=== PATIENT | female | born 1970 | race Caucasian/White ===

== ENCOUNTER → 2016-07-19 | Outpatient (CLI) | payer OTHER ==
--- NOTE | 2016-07-19 13:18 | DIREP ---
PROCEDURE:XRAY WRIST MIN 3VW-RT COMPARISON:[facility] Wang, SPINE LUMBAR 4 + VIEWS, 11/24/2015, 02:13 PM. INDICATIONS:ARTHRITIS OF RT WRIST, [place] DISEASE M93.0 FINDINGS: BONES:Hardware with plate and multiple screws traversing the distal radius, through the proximal 3rd metacarpal. The hardware appears intact. No lytic process to indicate infection or loosening. No acute superimposed fracture. JOINTS:Normal. SOFT TISSUES:Normal. OTHER:No additional findings. CONCLUSION:Arthrodesis of the right wrist, hardware intact, satisfactory alignment. No acute findings Dictated by: Fidencio Hernandez MD on 07/19/2016 at 01:16 PM
== END | disposition home or self-care (01) ==
LOC: RAD 12:53
PROVIDERS: ATTEND Nurse Practitioner Family
DX: M19.031 Primary osteoarthritis, right wrist (principal); M93.1 Kienbock's disease of adults
CPT/HCPCS: 73110-RT